=== PATIENT | female | born 1930 | race Caucasian/White ===

== ENCOUNTER 2016-10-01 12:40 | Inpatient (IN) ==
[2016-10-01] MEDS ORDERED: 0.9 % Sodium Chloride 500 ML IVC ONE (12:59)
--- NOTE | 2016-10-01 13:06 | Emergency Department Note ---
Disposition Clinical Impression: Slurred speech CVA (cerebral vascular accident) Qualifiers: CVA mechanism: unspecified Qualified Code(s): I63.9 - Cerebral infarction, unspecified Fall Qualifiers: Encounter type: initial encounter Qualified Code(s): W19.XXXA - Unspecified fall, initial encounter Shoulder pain Qualifiers: Chronicity: unspecified Laterality: left Qualified Code(s): M25.512 - Pain in left shoulder Hypertension Qualifiers: Hypertension type: unspecified Qualified Code(s): I10 - Essential (primary) hypertension Disposition: Admitted As Inpatient Condition: Fair Referrals: Madeline Godoy MD [Primary Care Provider] - Forms: ED Satisfaction Letter Time of Disposition: 14:10 Neuro HPI - General Chief Complaint: ED Neuro Symptoms/Deficit Stated Complaint: facial droop Time Seen by Provider: 10/01/16 12:48 Source: patient Mode of arrival: wheelchair Limitations: no limitations Nursing Notes Reviewed: Yes Vital Signs Reviewed: Yes - History of Present Illness HPI Narrative: 85-year-old female with history of remote brain cancer requiring surgery presents for evaluation for slurred speech. Patient is a poor historian. Patient's last known well was yesterday evening which was confirmed by the [id number] at bedside. Yohmyzyk-wo-xci states the patient had slurred speech last night and was related to the patient being tired. This was around 1730. Acmazzdd-[id number] then found the patient this morning lying on the floor in the hallway. Patient states that she fell getting out of bed and then fell in the hallway. Family states that the patient does ambulate on her own. Patient is unclear the timeframe of the fall. Reports some left shoulder pain but denies any other symptoms. No nausea vomiting. No headache. No abdominal pain. Denies being in any pain other than the left shoulder. Family states the patient does not have a history of strokes. Patient is not on any type of anticoagulation or antiplatelet. Patient's not been taking aspirin. Family confirmed that the patient does not have a history of heart disease, diabetes, high blood pressure. Patient does live at home on her own. - Related Data Home Medications: Home Medications Medication Instructions Recorded Confirmed Cholecalciferol (D-3) [Vitamin D] 1,000 unit PO DAILY 10/01/16 10/01/16 Ferrous Sulfate [Iron] 325 mg PO BID 10/01/16 10/01/16 Multivitamin [Multi-Day Vitamins] 1 tab PO DAILY 10/01/16 10/01/16 Solifenacin Succinate [Vesicare] 10 mg PO DAILY 10/01/16 10/01/16 Allergies/Adverse Reactions: Allergies Allergy/AdvReac Type Severity Reaction Status Date / Time No Known Allergies Allergy Verified 11/25/14 09:33 All systems ED: reviewed and negative except as stated. Constitutional: Reports: as per HPI. Denies: fever Eyes: Reports: as per HPI ENT ED: Reports: as per HPI Cardiovascular: Reports: as per HPI. Denies: chest pain Respiratory: Reports: as per HPI. Denies: dyspnea Gastrointestinal: Reports: as per HPI. Denies: abdominal pain, nausea, vomiting Genitourinary: Reports: as per HPI Musculoskeletal: Reports: as per HPI Integumentary: Reports: as per HPI Neurological: Reports: as per HPI. Denies: headache, weakness, numbness Psychiatric: Reports: as per HPI Endocrine: Reports: as per HPI Hematological/Lymphatic: Reports: as per HPI Allergic/Immunologic: Reports: as per HPI Past Medical History - Past Medical History Medical history: Reports: hyperlipidemia Psychiatric history: Reports: no psych history CARE SPECIALIST history: Reports: bilateral tubal ligation - Social History Smoking Status: Never smoker Smokeless Tobacco Status: No Alcohol use: Reports: none Drug use: Reports: none Physical Exam - General Limitations: age General appearance: alert, in no apparent distress, cachectic - Head Head exam: atraumatic, normocephalic, normal inspection - Eye Eye exam: Present: normal appearance, PERRL (5 mm reactive), EOMI - ENT ENT exam: normal exam - Neck Neck exam: Present: normal inspection. Absent: tenderness - Chest Chest inspection: Present: normal inspection, symmetric chest wall rise - Respiratory Respiratory exam: Present: normal lung sounds bilaterally. Absent: respiratory distress - Cardiovascular Cardiovascular exam: Present: regular rate, normal rhythm, systolic murmur (3 out of 6) - Abdominal Exam Abdominal exam: Present: soft, Non-Tender - Extremities Exam Extremities exam: Present: normal inspection. Absent: pedal edema - Expanded Lower Extremity Exam Hip/Pelvis exam: Present: normal inspection. Absent: tenderness Upper leg exam: Present: normal inspection. Absent: tenderness Knee exam: Present: normal inspection. Absent: tenderness - Back Exam Back exam: Present: normal inspection - Neurological Exam Neurological exam: Present: alert, CN II-XII intact - Expanded Neurological Exam Patient oriented to: Present: person, place. Absent: time Speech: Present: fluid speech Cranial nerves: EOM function (II, III, IV, ): Normal, facial sensation (V): Normal, facial palsy (VII): Abnormal Left (Left facial droop), spinal accessory function (XI): Normal, tongue deviation (XII): Normal Cerebellar function: finger to nose: Abnormal Left Motor strength - LUE: 5/5 Motor strength - RUE: 5/5 Motor strength - LLE: 5/5 Motor strength - RLE: 5/5 Upper motor neuron exam: pronator drift: Absent bilaterally Coma Scale Eye Opening: Spontaneous Coma Scale Motor Response: Obeys Commands Coma Scale Verbal Response: Confused Coma Scale Total: 14 - Skin Skin exam: Present: warm, dry, intact, normal color Course Course Narrative: Patient seen and examined. Patient's last known well was last night. Stroke alert was not activated due to the timing. Patient will get extensive neurologic evaluation. Patient's alert and oriented 2. Patient slightly confused with unclear etiology why she is here. Patient's NIH of 3 given her slurred speech, facial droop, ataxia with finger to nose. Patient will get laboratory evaluation as well as cardiopulmonary with EKG, troponin as well as urinalysis. She will also get a CK. Imaging will include CT of the head and neck. Patient also gets secondary imaging of the left shoulder and chest. Disposition likely admission for further neurologic evaluation. - Reevaluation(s) Reevaluation #1: Patient returned from CT. CT imaging reviewed shows no acute abnormalities. Additional remote lacunar infarcts. Patient's neurologic exam is unchanged. Urinalysis obtained. Patient family updated on plan of care. Patient will be admitted to the hospital service for further evaluation. Time: 14:05 Reevaluation #2: Patient seen and examined. Patient's resting comfortably. Patient was updated on plan of care. Time: 14:51 Vital Signs Temperature 97.8 F 10/01/16 12:42 Pulse Rate 68 10/01/16 12:42 Respiratory Rate 16 10/01/16 12:42 Blood Pressure 133/86 10/01/16 12:42 O2 Sat by Pulse Oximetry 97 10/01/16 12:42 Temperature 97.8 F 10/01/16 12:42 Pulse Rate 96 10/01/16 14:34 Respiratory Rate 18 10/01/16 14:34 Blood Pressure 176/119 10/01/16 14:34 O2 Sat by Pulse Oximetry 98 10/01/16 14:34 Oxygen Delivery Oxygen Delivery Room Air Neuro Symptoms/Deficit - MDM Narrative Medical decision making narrative: 85 YEAR old female presents for evaluation for possible CVA. Patient denies history of strokes in the past. Last known well was last night. Patient is not a thrombolytic candidate and a stroke alert was not called. Patient did have a NIH score of 3 given facial droop, slurred speech and ataxia with finger to nose. Patient does live at home. Family at bedside provided somewhat additional history. Patient reports that she did fall. Denies any pain except pain in her left shoulder. Patient CT imaging of the head and neck obtained which shows no acute abnormalities but does show remote lacunar infarcts which are consistent with hypertension which the patient does exhibit some elevated high blood pressure in the ER. Concerns about any rapidly lowering blood pressure agents given the possibility of ischemic CVA. Patient was given aspirin. Patient CT of the neck showed a possible T3 compression fracture however the patient is not tender on palpation and less likely this is acute finding. Patient's lab work including CBC troponin I through obtained. Urinalysis was also obtained. And will be sent for culture. No antibiotics initiated in the emergency department. Patient will be admitted to hospital service for further neurologic evaluation and monitoring. Family bedside updated on plan of care. Patient would likely benefit from neurological evaluation as well as discharge planning. - Lab Data Lab results reviewed: Yes I reviewed the patient's lab results. Result diagrams: 10/01/16 13:08 10/01/16 13:08 Lab Results 10/01/16 10/01/16 10/01/16 Range/Units 13:08 13:08 13:08 WBC 9.5 (4.3-11.1) K/mcL RBC 4.10 (3.82-4.97) M/mcL Hgb 12.7 (11.5-15.4) g/dL Hct 38.8 (35.3-44.9) % MCV 94.6 (83.0-100.0) fL MCH 31.0 (28.0-33.3) pg MCHC 32.7 (31.6-35.5) g/dL RDW 14.0 (11.5-14.5) % Plt Count 236 (140-400) K/mcL MPV 10.5 (9.4-12.4) fL Immature Gran % 0.3 (0-4) % Seg Neutrophils % 63.0 % Lymphocytes % 21.6 % Monocytes % 12.4 % Eosinophils % 2.0 % Basophils % 0.7 % Neutrophils # 6.0 (1.6-8.9) K/mcL Lymphocytes # 2.1 (0.6-4.6) K/mcL Monocytes # 1.2 (0.0-1.3) K/mcL Eosinophils # 0.2 (0.0-0.6) K/mcL Basophils # 0.1 (0.0-0.2) K/mcL PT 11.6 (9.4-12.1) Seconds INR 1.1 APTT 28.6 (26.0-36.0) Seconds Sodium 142 (136-145) mEq/L Potassium 3.9 (3.5-4.5) mEq/L Chloride 106 (98-109) mEq/L Carbon Dioxide 29 (19-29) mEq/L BUN 24 H (7-20) mg/dL Creatinine 0.92 (0.57-1.11) mg/dL Est GFR ( Amer) > 60 (> 60) Est GFR (Non-Af Amer) 58 L (> 60) BUN/Creatinine Ratio 26 (6-26) Glucose 101 H (70-99) mg/dL Calculated Osmolality 298 (280-300) Calcium 9.7 (8.6-10.8) mg/dL Creatine Kinase (29-168) Units/L Troponin I (0-0.03) ng/mL Urine Color (Yellow) Urine Clarity (Clear) Urine pH (5.0-8.0) pH Units Ur Specific [place] (1.010-1.025) Urine Protein (Neg-Trace) mg/dL Urine Glucose (UA) (Normal) mg/dL Urine Ketones (Negative) mg/dL Urine Blood (Negative) Urine Nitrite (Negative) Urine Bilirubin (Negative) Urine Urobilinogen (Normal) mg/dL Ur Leukocyte Esterase (Negative) Urine Microscopic RBC (0-3) per hpf Urine Microscopic WBC (0-3) per hpf Ur Squamous Epith Cells (None-Few) per lpf Urine Bacteria (None-Few) per hpf Hyaline Casts (None-Few) per lpf 10/01/16 10/01/16 10/01/16 Range/Units 13:08 13:08 14:01 WBC (4.3-11.1) K/mcL RBC (3.82-4.97) M/mcL Hgb (11.5-15.4) g/dL Hct (35.3-44.9) % MCV (83.0-100.0) fL MCH (28.0-33.3) pg MCHC (31.6-35.5) g/dL RDW (11.5-14.5) % Plt Count (140-400) K/mcL MPV (9.4-12.4) fL Immature Gran % (0-4) % Seg Neutrophils % % Lymphocytes % % Monocytes % % Eosinophils % % Basophils % % Neutrophils # (1.6-8.9) K/mcL Lymphocytes # (0.6-4.6) K/mcL Monocytes # (0.0-1.3) K/mcL Eosinophils # (0.0-0.6) K/mcL Basophils # (0.0-0.2) K/mcL PT (9.4-12.1) Seconds INR APTT (26.0-36.0) Seconds Sodium (136-145) mEq/L Potassium (3.5-4.5) mEq/L Chloride (98-109) mEq/L Carbon Dioxide (19-29) mEq/L BUN (7-20) mg/dL Creatinine (0.57-1.11) mg/dL Est GFR ( Amer) (> 60) Est GFR (Non-Af Amer) (> 60) BUN/Creatinine Ratio (6-26) Glucose (70-99) mg/dL Calculated Osmolality (280-300) Calcium (8.6-10.8) mg/dL Creatine Kinase 84 (29-168) Units/L Troponin I 0.00 (0-0.03) ng/mL Urine Color Yellow (Yellow) Urine Clarity Cloudy A (Clear) Urine pH 7.5 (5.0-8.0) pH Units Ur Specific [place] 1.010 (1.010-1.025) Urine Protein Negative (Neg-Trace) mg/dL Urine Glucose (UA) Normal (Normal) mg/dL Urine Ketones Negative (Negative) mg/dL Urine Blood Moderate H (Negative) Urine Nitrite Negative (Negative) Urine Bilirubin Negative (Negative) Urine Urobilinogen Normal (Normal) mg/dL Ur Leukocyte Esterase Moderate H (Negative) Urine Microscopic RBC 15-30 H (0-3) per hpf Urine Microscopic WBC 5-15 H (0-3) per hpf Ur Squamous Epith Cells Many H (None-Few) per lpf Urine Bacteria Moderate H (None-Few) per hpf Hyaline Casts Moderate H (None-Few) per lpf - Radiology Data Radiology results reviewed: Yes I reviewed the patient's radiology results. Chest X-Ray 10/01/16 12:58 IMPRESSION: 1. No active pulmonary disease. D/ / Shahbaz Sanchez MD / Shahbaz Sanchez MD Interpreting Provider: Shahbaz Sanchez MD Head CT 10/01/16 12:59 IMPRESSION: No acute intracranial abnormality. Cerebral atrophy. Chronic small vessel ischemic disease. Remote lacunar infarcts in the basal ganglia and thalami bilaterally. CT is insensitive for the early detection of cerebrovascular accident in the first 24 hours. Previous right frontal parietal craniotomy. D/ / 10/01/2016 13:54:45 Aida Godoy MD / [facility] Interpreting Provider: Aida Godoy MD Cervical Spine CT 10/01/16 13:02 IMPRESSION: 1. Possible mild acute superior endplate compression fracture of T3. 2. No other acute abnormalities are identified. 3. Multilevel degenerative changes. D/ / 10/01/2016 13:59:40 Lukas Palmer MD / jen Interpreting Provider: Lukas Palmer MD Shoulder X-Ray 10/01/16 13:03 IMPRESSION: 1. No acute abnormality. D/ / Abel Whitt MD / Abel Whitt MD Interpreting Provider: Abel Whitt MD - EKG Data EKG attestation: Yes I reviewed and interpreted this EKG. EKG shows normal: sinus rhythm Rate: normal Rhythm: NSR [place]/QRS: normal Interpretation: no acute changes, unchanged when compared to prior tracing (date ) NIH Stroke Scale - Level of Consciousness LOC: Alert - LOC Questions LOC Questions: Answers both correctly - LOC Commands LOC Commands: Performs both correctly - Best Gaze Best Gaze: Normal - Visual Visual: No visual loss - Facial Palsy Facial Palsy: Minor asymmetry on smiling, flattened nasolabial fold - Motor Arms Motor Arm-Left: No drift for 10 seconds Motor Arm-Right: No drift for 10 seconds - Motor Legs Motor Leg-Left: No drift for 5 seconds Motor Leg-Right: No drift for 5 seconds - Limb Ataxia Limb Ataxia: Present in ONE limb - Sensory Sensory: Normal - Best Language Best Language: No aphasia - Dysarthria Dysarthria: Mild, slurs some words - Extinction and Inattention Extinction and Inattention: Normal - NIHSS Total Score NIHSS Total Score: 3 TPA Checklist - LKW: 3-4.5 hrs Add. Warnings/Precautions Patient/family understanding: The patient/family members have been counseled and understood the risk, benefit , and alternatives of treatment. S.B.ARahul - S.B.ARahul Situation: Demographics Background: Presenting Complaint Assessment: Vital Signs, Course and respsone to treatment Recommendation: Barrier(s) to disposition, Recommendation based on pending studies, treatments, or consults S.B.A.Rick Report Given to: Dr. SUKI HawleyBLisandroARahul Repor Time: 14:36 Attestation Statement - Attestation Attestation: I personally interviewed and examined this patient and my medical decision- making was reviewed with the ED Resident Physician, Dr. Pedraza. I agree with the documented findings, disposition and treatment plan as described except to the extent set forth below. Patient is an 85-year-old white female who is brought to the emergency department today by family for slurred speech and facial droop. According to the [id number] is with the patient at bedside, as early as yesterday afternoon when they went to see the patient he noticed that she was having some slurred speech. Idtznhct-mp-gxm reports that she called her later on to check on her at about 7 PM and on the phone still sounded like she had slurred speech was tested but was denying any symptoms and stated she was feeling fine. Patient does live independently but family lives close by and check on her frequently. Today when they stopped to see her they found her on the floor in the hallway of her home. She had left-sided facial droop and worsening slurred speech. Patient was awake alert and oriented and able to answer questions appropriately. She was denying any pain and no dizziness. Patient reports that she got up in the middle of the night, unclear as to what time and fell onto the floor. Patient reports that she crawled into the hallway and new her family would be by to check on her nurse that she just sat on the floor and waited for them. Patient appears awake, is denying any pain or discomfort of any kind no headaches, no chest pain or pressure, no abdominal pain, no neck or back pain, and no extremity pain. Patient denies any injuries from the fall. Patient with obvious left-sided facial droop and slurred speech but no obvious weakness of the extremities. Patient is resting comfortably in no acute distress. Vital signs on arrival are stable. I agree with patient's physical exam findings as documented. Patient's initial EKG showed no acute ST or T-wave changes. Was placed on a monitor as well as continuous pulse ox IV saline well was established labs were drawn and sent portal chest x-ray was obtained and she was taken to CT for a stat CT head. Patient based on time of onset of symptoms does not meet criteria for TPA so stroke network was not notified. Patient has remained clinically stable with no neurologic worsening throughout her ED course. Patient remains asymptomatic. Patient's CT head was unremarkable for any acute hemorrhagic or ischemic changes. Patient does have evidence of old lacunar infarcts, evidence of her remote frontoparietal brain surgery, and some chronic changes. CT neck does not show any cervical injury but did not find an acute compression fracture of T3. Patient on clinical exam has no tenderness to palpation overlying this area. Patient's also had plain film imaging which was unremarkable. Patient's labs including troponin were unremarkable. Patient's urine shows some moderate leuks and small amount of blood but no nitrates. We will administer aspirin and admit the patient for further evaluation of presumed CVA. Patient has had moderate increase in her blood pressure while being monitored continuously. Family denies any history of hypertension. We will continue to monitor closely. Discussed results with patient and daughter and patient will be admitted for further evaluation of neurologic changes.
[2016-10-01 13:23] LABS: Basophils # 0.1 K/mcL (0.0-0.2); Basophils % 0.7 %; Eosinophils # 0.2 K/mcL (0.0-0.6); Hematocrit 38.8 % (35.3-44.9); Hemoglobin 12.7 g/dL (11.5-15.4); Immature Granulocytes % 0.3 % (0-4); Lymphocytes # 2.1 K/mcL (0.6-4.6); Lymphocytes % 21.6 %; Mean Corpuscular HGB Conc 32.7 g/dL (31.6-35.5); Mean Corpuscular Volume 94.6 fL (83.0-100.0); Mean Platelet Volume 10.5 fL (9.4-12.4); Monocytes # 1.2 K/mcL (0.0-1.3); Monocytes % 12.4 %; Platelet Count 236 K/mcL (140-400)
[2016-10-01 13:25] LABS: INR 1.1; Prothrombin Time 11.6 Seconds (9.4-12.1)
[2016-10-01 13:28] LABS: Activated Partial Thrombo Time 28.6 Seconds (26.0-36.0)
[2016-10-01 13:34] LABS: BUN/Creatinine Ratio 26 (6-26); Blood Urea Nitrogen 24 mg/dL (7-20); Calcium 9.7 mg/dL (8.6-10.8); Carbon Dioxide 29 mEq/L (19-29); Chloride 106 mEq/L (98-109); Glucose 101 mg/dL (70-99); Osmolality,Calculated 298 (280-300); Potassium 3.9 mEq/L (3.5-4.5); Sodium 142 mEq/L (136-145); eGFR For African Americans > 60 (> 60); eGFR For Non-African Americans 58 (> 60)
[2016-10-01] MEDS ORDERED: Aspirin 81 MG TAB.CHEW PO ONE (14:04)
[2016-10-01 14:09] LABS: Bilirubin,Urine Negative (Negative); Blood,Urine Moderate (Negative); Clarity,Urine Cloudy (Clear); Color,Urine Yellow (Yellow); Glucose,Urine (UA) Normal (Normal); Ketones,Urine Negative (Negative); Leukocyte Esterase,Urine Moderate (Negative); Nitrite,Urine Negative (Negative); PH,Urine 7.5 pH Units (5.0-8.0); Protein,Urine Negative (Neg-Trace); Urobilinogen,Urine Normal (Normal)
[2016-10-01 14:11] LABS: Bacteria,Urine Moderate per hpf (None-Few); Hyaline Casts,Urine Moderate per lpf (None-Few); RBC,Urine 15-30 per hpf (0-3); Squamous Epithelial Cell,Urine Many per lpf (None-Few)
[2016-10-01] MEDS ORDERED: Naloxone 0.4 MG/ML INJ IVP PRN (16:12)
--- NOTE | 2016-10-01 16:35 | Internal Med History&Physical ---
Date of Encounter: 10/01/16 Time of Encounter: 16:35 Assessment and Plan (1) CVA (cerebral vascular accident) Current visit: Yes Status: Acute 1 patient is experiencing slurred speech as well as left-sided facial droop as well as left-sided weakness. She also experienced a fall. CT of head did reveal remote lacunar infarcts in the basal ganglia and thalami bilaterally. We will obtain MRI 2 obtain cardiac echo 3 obtain carotid Dopplers 4 we will continue patient nothing by mouth due to left-sided facial droop speech evaluation 5 continue with aspirin rectally 6 we will obtain A1c and lipid profile-apparently patient does not tolerate statins 7 consult PT OT 8 fall precautions aspiration precautions 9 consult neurology as needed Qualifiers: CVA mechanism: unspecified Qualified Code(s): I63.9 - Cerebral infarction, unspecified (2) CKD (chronic kidney disease), stage II Current visit: No Status: Chronic 1 patient has a history of PKD stage III presently creatinine is stable at 0.9- 3 we will continue to monitor creatinine 2 avoid nephrotoxins 3 monitor intake and output daily weights (3) Hyperlipidemia Current visit: No Status: Chronic 1 patient has a history of hyperlipidemia and she is probably not on a statin due to she is unable to tolerate. We will obtain lipid profile-reevaluate possible statin use Qualifiers: Hyperlipidemia type: unspecified Qualified Code(s): E78.5 - Hyperlipidemia , unspecified (4) Fall Current visit: Yes Status: Acute 1 fall precautions 2 PT OT consult 3 social service consult for discharge planning 4 we will obtain ck-due to unknown how long patient was found down Qualifiers: Encounter type: initial encounter Qualified Code(s): W19.XXXA - Unspecified fall, initial encounter (5) Hypertension Current visit: Yes Status: Acute Qualifiers: Hypertension type: unspecified Qualified Code(s): I10 - Essential (primary ) hypertension (6) DVT prophylaxis Current visit: Yes Status: Acute 1 SCD Internal Medicine - H&P: HPI Chief complaint: fall Admitted From: Emergency Dept Plans for Post Hospital Care: Home History of present illness: Ms. Mendoza is a 85 year old female past medical history of chronic anemia chronic urinary tract infections CK D stage II macular degeneration hypertension hyperlipidemia, past history of brain cancer. Patient presented to the ER today with new onset of slurred speech and weakness and left facial droop. Last known well was yesterday evening around 5:30. The patient does live alone. Oaageolb-wo-iks who is at bedside, stated that the patient did have some slight slurred speech last night as well as complaining of feeling tired. Around 9 or 10 AM this morning the xybvkaqv-nq-dyw found the patient on the floor in the hallway. Patient states that she was attempting to get ready for bed and she became weak and fell forward onto the bed and then slid to the floor she was unable to get up on her and she states that her left arm felt weak and was unable to lift herself up. She drove herself to the hallway and called for help and was there until daughter in law found her this a.m. patient denies any dizziness lightheadedness palpitations or loss of consciousness prior or during fall. Patient is unsure of timeframe of fall sometime in the evening and cflrdfst-kw-chw reports she was still on her clothes from the day before. She denies any nausea vomiting diarrhea abdominal pain chest pain shortness of breath fevers or chills. The patient lives independently and is able to perform her ADLs She does have some difficulty ambulating due to frequent calluses on her feet, however she has not had any falls. She does not have a past history of strokes however she did have a brain tumor in 1973 which was removed. According to ER records lab work was obtained which was unremarkable UA did show blood bacteria as well leuk esttrase. Patient denies any urinary symptoms. CT of head Remote lacunar infarcts in the basal ganglia and thalami bilaterally. She was given an aspirin and has been admitted for further workup and evaluation. Presently the patient is alert and appropriate she does follow simple commands she has a left-sided facial droop as well as slurred speech. She has weakness to her upper and lower extremities lungs sounds are clear heart sounds are regular S1-S2 with soft systolic murmur. Abdomen soft nontender no pedal edema noted. Presently patient is hemodynamically stable. I reviewed his case with who agrees with plan. Past Med Surg Social Fam HX - Past Medical History Medical history: hyperlipidemia Psychiatric history: no psych history - Social History Smoking Status: Never smoker Smokeless Tobacco Status: No Alcohol use: none Drug use: none - Family History Father Living Status: Hx Family Cancer: Yes (Prostate cancer) Mother Living Status: Cause of : Heart disease Internal Medicine - H&P: Meds Cholecalciferol (D-3) [Vitamin D] 1,000 unit PO DAILY 10/01/16 [History] Ferrous Sulfate [Iron] 325 mg PO BID 10/01/16 [History] Multivitamin [Multi-Day Vitamins] 1 tab PO DAILY 10/01/16 [History] Solifenacin Succinate [Vesicare] 10 mg PO DAILY 10/01/16 [History] Allergies No Known Allergies Allergy (Verified 11/25/14 09:33) All Systems PM: A 10-system review of systems was performed and is negative for pertinent findings except as documented above in the HPI. - Constitutional Constitutional: fatigue, weakness, no chills, no fever(s), no night sweats - EENT Eyes: no change in vision, no discharge, no pain, no photophobia Ears: decreased hearing, no ear discharge, no ear pain, no tinnitus Nose, mouth and throat: dry mouth, no dysphagia, no nasal discharge, no neck pain, no sore throat - Cardiovascular Cardiovascular ROS IM: no chest pain, no diaphoresis, no dyspnea, no lightheadedness, no palpitations, no syncope - Respiratory Respiratory: no cough, no dyspnea, no wheezing, no excessive phlegm production - Gastrointestinal Gastrointestinal: no abdominal pain, no diarrhea, no hematemesis, no hematochezia, no melena, no nausea, no vomiting - Genitourinary Genitourinary: no change in urinary stream, no dysuria, no flank pain, no hematuria - Musculoskeletal Musculoskeletal ROS IM: no numbness, no tingling - Integumentary Integumentary IM: no rash, no unusual bruising - Neurological Neurological ROS: abnormal speech, confusion, weakness, no convulsions, no focal weakness, no numbness, no tingling, no tremor(s) - Hematologic/Lymphatic Hematologic/Lymphatic: no easy bruising - Constitutional Vitals: Temp Pulse Resp BP Pulse Ox 97.8 F 96 18 176/119 98 10/01/16 12:42 10/01/16 14:34 10/01/16 14:34 10/01/16 14:34 10/01/16 14:34 General appearance: Present: A&O X 3, answers questions appropriately - Head Head exam: Present: atraumatic, normocephalic - Eye Eye exam: Present: PERRL, conjuntiva pink, sclera anicteric Pupils: Present: PERRL - Neck Neck exam general surgery: Present: supple, trachea midline. Absent: lymphadenopathy - Respiratory Respiratory exam: Present: CTAB. Absent: accessory muscle use, rales, rhonchi, wheezes - Cardiovascular Cardiovascular exam: Present: RRR, +S1, +S2, systolic murmur. Absent: diastolic murmur, gallop, rubs - GI/Abdominal GI/Abdominal exam: Present: normal bowel sounds, soft, no peritoneal signs. Absent: distended, tenderness - Extremities Exam Extremities exam: Present: warm, radial pulses palpable and symetrical. Absent : calf tenderness, cyanotic, pedal edema - Neurological Exam Neurological exam: Present: CN II-XII intact, oriented X3, no focal deficits, facial droop, speech deficit. Absent: pronater drift - Expanded Neurological Exam Cerebellar function: finger to nose: Normal Neuro motor strength exam: LUE: 3, RUE: 5, LLE: 2/1, RLE: 3 Coma Scale Eye Opening: Spontaneous Coma Scale Motor Response: Obeys Commands Coma Scale Verbal Response: Oriented Coma Scale Total: 15 - Skin Skin exam: Present: dry, intact Internal Med - H&P Results - Labs CBC & Chem 7: 10/01/16 13:08 10/01/16 13:08 - EKG Data EKG shows normal: sinus rhythm - Diagnostic Studies CT scan - head Additional comments: Chest X-Ray 10/01/16 12:58 IMPRESSION: 1. No active pulmonary disease. D/ / Shahbaz Sanchez MD / Shahbaz Sanchez MD Interpreting Provider: Shahbaz Sanchez MD Head CT 10/01/16 12:59 IMPRESSION: No acute intracranial abnormality. Cerebral atrophy. Chronic small vessel ischemic disease. Remote lacunar infarcts in the basal ganglia and thalami bilaterally. CT is insensitive for the early detection of cerebrovascular accident in the first 24 hours. Previous right frontal parietal craniotomy. D/ / 10/01/2016 13:54:45 Aida Godoy MD / earnold Interpreting Provider: Aida Godoy MD Cervical Spine CT 10/01/16 13:02 IMPRESSION: 1. Possible mild acute superior endplate compression fracture of T3. 2. No other acute abnormalities are identified. 3. Multilevel degenerative changes. D/ / 10/01/2016 13:59:40 Lukas Palmer MD / jen Interpreting Provider: Lukas Palmer MD Shoulder X-Ray 10/01/16 13:03 IMPRESSION: 1. No acute abnormality. D/ / Abel Whitt MD / Abel Whitt MD Interpreting Provider: Abel Whitt MD
[2016-10-01] MEDS ORDERED: Saliva Stimulant 100ml BOTTLE PO PRN (16:36)
[2016-10-02 00:51] LABS: Basophils # 0.1 K/mcL (0.0-0.2); Basophils % 0.6 %; Eosinophils # 0.4 K/mcL (0.0-0.6); Eosinophils % 4.5 %; Hematocrit 36.6 % (35.3-44.9); Hemoglobin 11.5 g/dL (11.5-15.4); Immature Granulocytes % 0.1 % (0-4); Immature Platelets 5.4 % (1.1-6.1); Mean Corpuscular HGB Conc 31.4 g/dL (31.6-35.5); Mean Corpuscular Hemoglobin 30.4 pg (28.0-33.3); Mean Corpuscular Volume 96.8 fL (83.0-100.0); Mean Platelet Volume 10.5 fL (9.4-12.4); Monocytes # 0.9 K/mcL (0.0-1.3); Monocytes % 11.2 %; Neutrophils # 4.6 K/mcL (1.6-8.9); Platelet Count 223 K/mcL (140-400); Red Blood Count 3.78 M/mcL (3.82-4.97); Red Cell Distribution Width 14.1 % (11.5-14.5); Segmented Neutrophils % 58.6 %
[2016-10-02 01:06] LABS: BUN/Creatinine Ratio 24 (6-26); Blood Urea Nitrogen 20 mg/dL (7-20); Calcium 8.8 mg/dL (8.6-10.8); Carbon Dioxide 27 mEq/L (19-29); Chloride 107 mEq/L (98-109); Chol/HDL Ratio 6.7 (0-4.9); Cholesterol 213 mg/dL (< 200); Glucose 77 mg/dL (70-99); HDL Cholesterol 32 mg/dL (40-59); LDL Cholesterol,Calculated 159 mg/dL (0-99); Magnesium 2.1 mg/dL (1.6-2.6); Osmolality,Calculated 291 (280-300); Potassium 3.9 mEq/L (3.5-4.5); Sodium 140 mEq/L (136-145); Triglycerides 108 mg/dL (< 150); eGFR For African Americans > 60 (> 60); eGFR For Non-African Americans > 60 (> 60)
[2016-10-02 01:43] LABS: Hemoglobin A1C 5.6 %
[2016-10-02] MEDS ORDERED: Ondansetron 4 MG/2 ML VIAL ONE (05:20)
[2016-10-02] MEDS: Ondansetron 4 MG/2 ML VIAL IVP PRN ×2 (06:39→20:42)
--- NOTE | 2016-10-02 07:00 | Carotid Imaging Report ---
Carotid Duplex Patient Name:Teresa Mendoza Order Number:[id number] Procedure Date:10/01/2016 Date:1930Age:85 yrs Gender:Female Rt.BP:188 / 83 mmHgHeart Rate: Location:[facility] Room #: 2NE24 [employer] Driver:Ashley Bustos RDCS Referring MD:Radha Watt CNP semiconductor processing group leader:Madeline Godoy MD Reading MD:Wilman Escobar MD Primary Indications:Left Side Weakness Risk Factors Yes/No Hypercholesterolemia Yes Impressions: The right carotid artery is normal throughout. The left carotid artery has minimal plaque throughout. Findings Carotid Duplex: Right: There is antegrade spectral Doppler flow patterns in the right vertebral artery. Left: There is nonstenotic plaque in the left bifurcation. There is smooth plaque. There is antegrade spectral Doppler flow patterns in the left vertebral artery. Prior Study: No prior study available for comparison. Carotid Results Right PSV EDV Assessment Proximal CCA 49 10 Mid CCA 45 11 Distal CCA 42 12 Bifurcation 32 7 Proximal ICA 44 11 Mid ICA 53 14 Distal ICA 58 15 ECA 60 5 Vertebral Artery 73 15 Antegrade Flow Left PSV EDV Assessment Proximal CCA 64 11 Mid CCA 52 11 Distal CCA 53 12 Bifurcation 39 11 Non Stenotic Plaque Proximal ICA 40 9 Mid ICA 62 17 Distal ICA 80 21 ECA 62 3 Vertebral Artery 48 11 Antegrade Flow Ratio's Right ICA/CCA Ratio: 1.28 ICA/CCA Values: 58/45 Left ICA/CCA Ratio: 1.29 ICA/CCA Values: 80/62 Updated by Wilman Escobar MD on 10/02/2016 6:52:50 AM electronically signed on 10/02/2016 6:53:18 AM with status of Final
--- NOTE | 2016-10-02 09:07 | Event Note ---
Date of Encounter: 10/02/16 Time of Encounter: 08:10 I was called to assess this patient as she had an acute change in her mental status and new neurological deficits including being unresponsive and worsening weakness on the left side. Patient is an 85-year-old who was admitted yesterday due to acute CVA causing left-sided weakness and left facial droop. MRI revealed right mid coronary radiator [place] infarct. On assessing the patient, the patient was not able to answer any questions. She responds only to painful stimuli. NIH stroke scale is 16 with the patient being able to hold the right arm until the count of 10. Left arm felt to the bed before the count of 10. Both legs felt to the bed immediately. Temperature 96.2 degrees Fahrenheit pulse rate 100/m respiratory rate 16/m and blood pressure 183/98 mmHg. Stroke alert initiated. CT scan of the head performed stat-personally reviewed. No acute hemorrhagic conversion or edema noted. CT angiogram of the head and neck performed-reviewed with radiologist Dr. Reyes. Tight occlusion versus high-grade stenosis noted in the left proximal middle cerebral artery in the M2 segment. Case discussed with [facility] neurologist on-call Dr. Beard. He states that the patient is not a candidate for TPA or intervascular intervention given her symptoms and new onset left-sided stroke. 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 I have called the number for the next of kin and was able to talk to the vqcesyfk-yk-dsy Rosa and updated her about the latest developments. Rosa said that the patient's son Toan is a next of kin. She would call her son and convey their decision to me. I have provided them with my personal phone number. Once I hear back from Toan or Rosa, I will transfer the patient to [facility] for higher level of care. Total critical care time of 60min
--- NOTE | 2016-10-02 09:40 | Electrocardiograph Report ---
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
--- NOTE | 2016-10-02 12:31 | Neurology - Consult Note ---
Date of Encounter: 10/02/16 Time of Encounter: 12:25 Assessment and Plan (1) CVA (cerebral vascular accident) Current Visit: Yes Status: Acute This appears to be a small vessel lacunar infarct, secondary to small vessel etiology. She does have buttermaker HTN and hyperlipidemia. No prior history of atrial fibrillation. Continue telemetry. Patient developed an episode of acute change in mental status this am with full recovery, with only residual neurological deficits consistent with proven right kahn radiata lacuanr infarct. The presence of left M2 occlusion is of unknown clinical significant and it may be chronic in nature with establishment of collateral blood flow via [place] of [place]. Will continue stroke work up. Agree with repeat MRI of brain, EEG and carotid artery duplex as recommended by [facility] neuologist. Meanwhile, Continue aspirin 325mg daily and continue statin therapy. will watch neurologically closely, PT swallow evaluation and PT, continue medical and supportive care. Qualifiers: CVA mechanism: unspecified Qualified Code(s): I63.9 - Cerebral infarction, unspecified History of Present Illness Chief complaint: left sided weakness HPI: Ms. Mendoza is a 85 year old female with PMH significant for HTN, GERD, HLD, CKD, macular deeneration who developed acute onset of left sided weakness yesterday and seen her PCP who suspected stroke. Indeed, MRI of brain yesterday showed acute infarct involving the right kahn radiata, likely secondary to small vessel lacunar infarct. does have history of HTN but no history of atrial fibrillation This AM, had an episode of acute mental status changes, unresponsive and not able to move all extremities. No obvious motor or seizure activity. Evaluated by [facility] telemedicine who recommended CTA of neck and brain, which showed left M2 occlusion. Subsequently patient regained her consciousness. Has left facial droop and tongue devaiation now. Able to move left arm and leg. Has dysarthria. but language content appears intact. Wide awake and responsive Past Med Surg Social Fam HX - Past Medical History Medical history: hyperlipidemia Psychiatric history: no psych history - Social History Smoking Status: Never smoker Smokeless Tobacco Status: No Alcohol use: none Drug use: none - Family History Father Living Status: Hx Family Cancer: Yes (Prostate cancer) Mother Living Status: Cause of : Heart disease Medications and Allergies Cholecalciferol (D-3) [Vitamin D] 1,000 unit PO DAILY 10/01/16 [History] Ferrous Sulfate [Iron] 325 mg PO BID 10/01/16 [History] Multivitamin [Multi-Day Vitamins] 1 tab PO DAILY 10/01/16 [History] Solifenacin Succinate [Vesicare] 10 mg PO DAILY 10/01/16 [History] Allergies No Known Allergies Allergy (Verified 11/25/14 09:33) All Systems: A 10-system review of systems was performed and is negative for pertinent findings except as documented above in the HPI. Physical Examination - Vital Signs Vital Signs: Initial Vital Signs Temp Pulse Resp BP Pulse Ox 97.8 F 68 16 133/86 97 10/01/16 12:42 10/01/16 12:42 10/01/16 12:42 10/01/16 12:42 10/01/16 12:42 - Constitutional General appearance: comfortable - Neurologic Sensorimotor examination: other (Grossly intact) Detailed motor examination: grossly full strength in all extremities (Hand manager metal mildly weak to the left arm. Able to lift left leg off the bed and keep it there more than few seconds.) Motor examination - right side: 5/5: deltoids, biceps, triceps, wrist flexion, wrist extension, blade aligner, hip flexors, tibialis Anterior, quadriceps, toe extension (EHL), plantarflexion Motor examination - left side: 4/5: deltoids, biceps, triceps, wrist flexion, wrist extension, hip flexors, blade aligner, quadriceps, tibialis Anterior, toe extension (EHL), plantarflexion Detailed sensory examination: other (Grossly intact) Posture: other (None) Reflexes: Biceps: 1+, Triceps: 1+, Brachioradialis: 1+, Patella: 1+, Achilles: 1 + Mental Status Examination: awake, alert, oriented to person, oriented to place, oriented to time, follows commands appropriately, answers questions appropriately, follows simple commands, localizes noxious stimulation, answers questions by nodding yes or no Cranial nerve examination: PERRL, EOMI, visual [place] intact, corneal reflexes brisk symmetrically, sensory to face intact, mastication intact, no facial asymmetry is present (left facial drooping noted. ), tongue protrudes midline ( Tongue protrudes to left side) Results - Laboratory Findings CBC and BMP: 10/02/16 00:24 10/02/16 00:24 Abnormal lab findings: Abnormal lab results RBC 3.78 M/mcL (3.82-4.97) L 10/02/16 00:24 MCHC 31.4 g/dL (31.6-35.5) L 10/02/16 00:24 Cholesterol 213 mg/dL (< 200) H 10/02/16 00:24 LDL Cholesterol, Calc 159 mg/dL (0-99) H 10/02/16 00:24 HDL Cholesterol 32 mg/dL (40-59) L 10/02/16 00:24 Cholesterol/HDL Ratio 6.7 (0-4.9) H 10/02/16 00:24 Urine Clarity Cloudy (Clear) A 10/01/16 14:01 Urine Blood Moderate (Negative) H 10/01/16 14:01 Ur Leukocyte Esterase Moderate (Negative) H 10/01/16 14:01 Urine Microscopic RBC 15-30 per hpf (0-3) H 10/01/16 14:01 Urine Microscopic WBC 5-15 per hpf (0-3) H 10/01/16 14:01 Ur Squamous Epith Cells Many per lpf (None-Few) H 10/01/16 14:01 Urine Bacteria Moderate per hpf (None-Few) H 10/01/16 14:01 Hyaline Casts Moderate per lpf (None-Few) H 10/01/16 14:01 Consult Discharge Plan - Plan Referrals: Madeline Godoy MD [Primary Care Provider] -
[2016-10-02] MEDS: Aspirin Enteric Coated 325 MG Tablet PO SCH (16:59)
[2016-10-02] MEDS: *HR* Heparin 5,000 UNIT/ML VIAL SQ SCH ×2 (19:23→21:43)
--- NOTE | 2016-10-02 19:40 | EEG/EMG/Oth Biometrics Report ---
EEG Procedure Report Date of procedure: 10/02/16 EEG Procedure: Routine EEG Procedure Note: Report: This EEG was acquired with standard international 10-20 electrode placement system with EKG recording. The background activity during this EEG was characterized by the presence of posterior dominant alpha rhythm with best frequency up to 9 Hz. The background activity was reactive to eye openings. Sleep stages were characterized by the presence of background fragmentation, Vertex waves, K-complexes and sleep spindles. There are no electrographic seizures identified during this tracing. There are no epileptiform discharges noted. However, there was rather persistent theta and delta slowing at the right dtep-wozsay-ytasatbu region. Photic stimulation produced no additional abnormalities. HV not performed during this study. EKG tracing showed no significant cardiac dysarrhythmia. Impression: This is an abnormal EEG due to presence of persistent focal slowing at the right zduq-lefhqs-ckodjeif region. Clinical Correlation: This EEG is consistent with mild focal neuronal dysfunction at the right para- centro-parietal region. This pattern can be seen in patients with focal cerebral structure abnormalities, or less likely, as an inter-ictal phenomenon of partial seizure disorder. Clinical correlation advised. Correlation with imaging studies may be helpful.
[2016-10-03] MEDS: *HR* Heparin 5,000 UNIT/ML VIAL SQ SCH ×3 (05:35→21:08)
[2016-10-03] MEDS: Aspirin Enteric Coated 325 MG Tablet PO SCH (09:28)
--- NOTE | 2016-10-03 12:39 | Neurology Progress Note ---
Date of Encounter: 10/03/16 Time of Encounter: 12:38 Assessment and Plan (1) CVA (cerebral vascular accident) Current Visit: Yes Status: Acute 1. Lacunar infarct secondary to small vessel etiology. Continue Aspirin 325mg daily. Statin therapy for hyperlipidemia. PT/OT. 2. One episode of altered mental status of unclear etiology. EEG showed focal slowing likely related to new stroke to the right side but less likely could be seen in patient with a recent partial seizure. This is the first such spell therefore will recommend no termination clerk antiepileptic therapy at present time. Please can be followed up in Neurology clinic in 2-3 weeks after discharge. Will sign off today please call if any questions Qualifiers: CVA mechanism: unspecified Qualified Code(s): I63.9 - Cerebral infarction, unspecified Subjective Principal diagnosis: CVA Interval history: Patent seen and examined. She has no further spells of mental status changes, still has rather significant dysarthria. But language content appears intact. Left sided paresis improved. 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 Able to lift left leg off the bed and keep it there more than few seconds.) Motor examination - left side: 4/5: deltoids, biceps, triceps, wrist flexion, wrist extension, hip flexors, roulette dealer, quadriceps, tibialis Anterior, toe extension (EHL), plantarflexion Sensation intact: Present: other (Grossly intact) Posture: Present: other (None) Mental Status Examination: Present: awake, alert, oriented to person, oriented to place, oriented to time, follows commands appropriately, answers questions appropriately, follows simple commands, localizes noxious stimulation, answers questions by nodding yes or no Cranial nerve examination: Present: PERRL, EOMI, visual [place] intact, corneal reflexes brisk symmetrically, sensory to face intact, mastication intact, no facial asymmetry is present (left facial drooping noted. ), tongue protrudes midline (Tongue protrudes to left side) Results - Laboratory Findings CBC and BMP: 10/02/16 00:24 10/02/16 00:24 Abnormal lab findings: Abnormal lab results RBC 3.78 M/mcL (3.82-4.97) L 10/02/16 00:24 MCHC 31.4 g/dL (31.6-35.5) L 10/02/16 00:24 POC Glucose 95 (58-89) H 10/01/16 12:52 Cholesterol 213 mg/dL (< 200) H 10/02/16 00:24 LDL Cholesterol, Calc 159 mg/dL (0-99) H 10/02/16 00:24 HDL Cholesterol 32 mg/dL (40-59) L 10/02/16 00:24 Cholesterol/HDL Ratio 6.7 (0-4.9) H 10/02/16 00:24 Urine Clarity Cloudy (Clear) A 10/01/16 14:01 Urine Blood Moderate (Negative) H 10/01/16 14:01 Ur Leukocyte Esterase Moderate (Negative) H 10/01/16 14:01 Urine Microscopic RBC 15-30 per hpf (0-3) H 10/01/16 14:01 Urine Microscopic WBC 5-15 per hpf (0-3) H 10/01/16 14:01 Ur Squamous Epith Cells Many per lpf (None-Few) H 10/01/16 14:01 Urine Bacteria Moderate per hpf (None-Few) H 10/01/16 14:01 Hyaline Casts Moderate per lpf (None-Few) H 10/01/16 14:01 - Diagnostic Findings Additional findings: EEG showed slowing at the right para centro-parietal region that can be the result of structural lesion or less likely as an interictal expression of partial seizure. Echocardiography showed normal LVEF of 60%, no significant valvular dysfunction , no PFO Consult Discharge Plan - Plan Referrals: Madeline Godoy MD [Primary Care Provider] -
--- NOTE | 2016-10-03 15:52 | Internal Med Progress Note ---
Date of Encounter: 10/03/16 Time of Encounter: 10:45 - Assessment and plan (1) CVA (cerebral vascular accident) Current Visit: Yes Status: Acute Assessment and plan: Patient's initial MRI revealed an acute stroke in the right mid coronary radiata. Case discussed with neurology. MRI personally reviewed and reviewed with neurology. Latest MRI also reveals an acute infarction in the right basal ganglia. Patient is currently on aspirin and statin. We will continue the same. Patient evaluated by physical therapy and occupational therapy. She would require rehabilitation placement. Echocardiogram reveals preserved ejection fraction with mild left ventricle diastolic dysfunction. Moderately dilated left atrium was seen. Mild to moderate diuretic stenosis present. Moderately calcified aortic valves. Patient is high risk due to risk of falls and the need for placement in a rehabilitation facility for strengthening. She is also at risk of recurrent stroke. Qualifiers: CVA mechanism: embolism Precerebral and cerebral artery: middle cerebral artery Laterality of affected vessel: right Qualified Code(s): I63.411 - Cerebral infarction due to embolism of right middle cerebral artery (2) Hypertension Current Visit: Yes Status: Chronic Assessment and plan: Blood pressure is borderline high. We will continue to allow permissive hypertension due to her acute CVA. Qualifiers: Hypertension type: essential hypertension Qualified Code(s): I10 - Essential (primary) hypertension (3) Moderate protein-calorie malnutrition Current Visit: Yes Status: Chronic Assessment and plan: Patient's BMI is 17.9 and she has had about 15% weight loss and she has decreased by mouth intake. Nutrition has been consulted. Nutritional supplements. (4) Other encephalopathy Current Visit: No Status: Resolved Assessment and plan: Patient had an episode of acute encephalopathy yesterday. This was likely due to a complication of her acute stroke. Case discussed with neurology. EEG shows abnormal slowing of activity over the right side but does not reveal epileptic foci. Even if this was a seizure, this would be the patient's first episode according to neurology and hence, would not require any antiepileptic drug therapy. This is currently resolved and the patient is back to her baseline. She has residual neurological deficits from her right sided stroke. - Subjective Interval history: Patient states that she is feeling well. She has been consuming modified diet without any problems. She has been participating with physical therapy. She denies any chest pain, palpitations or feeling lightheaded. She denies any vertigo. - Constitutional Vitals: Temp Pulse Resp BP Pulse Ox 98.2 F 92 16 167/98 97 10/03/16 12:02 10/03/16 12:02 10/03/16 12:02 10/03/16 12:02 10/03/16 12:02 General appearance: Present: A&O X 3, answers questions appropriately Exam: Gen.: Lying in bed. No acute distress. Facial deviation to the right. Chest: Clear to auscultation bilaterally. No adventitious sounds present. CVS: First and second heart sounds present. No murmurs, rubs or gallops. Abdomen: Soft, nontender, nondistended. Bowel sounds present. Internal Medicine: Result - Labs CBC & Chem 7: 10/02/16 00:24 10/02/16 00:24 - ABG Interpretation ABG results: PT/INR, D-dimer PT 11.6 Seconds (9.4-12.1) 10/01/16 13:08 - Impressions Impressions Brain MRI 10/02/16 10:59 IMPRESSION: 1. Acute 1.8 x 0.9 cm infarct within the superior margin the right basal ganglia extending to the right periventricular white matter. 2. No acute intracranial hemorrhage. 3. Diffuse cerebral volume loss and chronic small vessel ischemic changes. The findings were sent to the Radiology Results Communication [facility] at 3:09 pm on 10/02/2016to be communicated to a licensed caregiver. D/ / 10/02/2016 15:17:17 Rey Shah MD / Eufemia Lobo Interpreting Provider: Rey Shah MD Case discussed with neurology Consult Discharge Plan - Plan Referrals: Madeline Godoy MD [Primary Care Provider] -
[2016-10-04] MEDS: *HR* Heparin 5,000 UNIT/ML VIAL SQ SCH ×3 (06:07→20:08)
[2016-10-04] MEDS: Aspirin Enteric Coated 325 MG Tablet PO SCH (08:58)
--- NOTE | 2016-10-04 09:55 | Internal Med Progress Note ---
Date of Encounter: 10/04/16 Time of Encounter: 08:30 - Assessment and plan (1) CVA (cerebral vascular accident) Current Visit: Yes Status: Acute Assessment and plan: Patient is currently on aspirin and statin. We will continue the same. Patient evaluated by physical therapy and occupational therapy. She would require rehabilitation placement. Patient is currently awaiting placement to rehabilitation. Neurology has signed off. Patient to follow-up in neurology in 2-3 weeks after discharge. Patient is moderate risk due to risk of falls and the need for placement in a rehabilitation facility for strengthening. Qualifiers: CVA mechanism: embolism Precerebral and cerebral artery: middle cerebral artery Laterality of affected vessel: right Qualified Code(s): I63.411 - Cerebral infarction due to embolism of right middle cerebral artery (2) Hypertension Current Visit: Yes Status: Chronic Assessment and plan: Blood pressure is better controlled today. Continue to monitor. Qualifiers: Hypertension type: essential hypertension Qualified Code(s): I10 - Essential (primary) hypertension (3) Moderate protein-calorie malnutrition Current Visit: Yes Status: Chronic Assessment and plan: Nutrition consult and nutritional supplements. (4) Other encephalopathy Current Visit: No Status: Resolved - Subjective Interval history: Patient states that her strength is getting better. She is also able to consume diet without any problems. She is accompanied by her son at the bedside. She denies any nausea or vomiting. She denies feeling dizzy or lightheaded. She has been padded spitting with physical therapy. Currently, she is awaiting placement to rehabilitation facility and insurance approval. - Constitutional Vitals: Temp Pulse Resp BP Pulse Ox 98.3 F 84 15 143/79 97 10/04/16 07:00 10/04/16 07:00 10/04/16 07:00 10/04/16 07:00 10/04/16 07:00 General appearance: Present: A&O X 3, answers questions appropriately Exam: Gen.: Sitting in a chair. No acute distress. Chest: Clear to auscultation bilaterally. No adventitious sounds present. CVS: First and second heart sounds present. No murmurs, rubs or gallops. Abdomen: Soft, nontender, nondistended. Bowel sounds present. No hepatosplenomegaly. Internal Medicine: Result - Labs CBC & Chem 7: 10/02/16 00:24 10/02/16 00:24 - ABG Interpretation ABG results: PT/INR, D-dimer PT 11.6 Seconds (9.4-12.1) 10/01/16 13:08 Consult Discharge Plan - Plan Referrals: Madeline Godoy MD [Primary Care Provider] -
[2016-10-05] MEDS: *HR* Heparin 5,000 UNIT/ML VIAL SQ SCH ×3 (05:10→20:56)
[2016-10-05] MEDS: Aspirin Enteric Coated 325 MG Tablet PO SCH (08:40)
--- NOTE | 2016-10-05 10:30 | Internal Med Progress Note ---
Date of Encounter: 10/05/16 Time of Encounter: 08:30 - Assessment and plan (1) CVA (cerebral vascular accident) Current Visit: Yes Status: Acute Assessment and plan: Continue aspirin and statin. She would require rehabilitation placement. Awaiting bed and insurance approval likely tomorrow. Neurology has signed off. Patient to follow-up in neurology in 2-3 weeks after discharge. Patient is moderate risk due to risk of falls and the need for placement in a rehabilitation facility for strengthening. Qualifiers: CVA mechanism: embolism Precerebral and cerebral artery: middle cerebral artery Laterality of affected vessel: right Qualified Code(s): I63.411 - Cerebral infarction due to embolism of right middle cerebral artery (2) Hypertension Current Visit: Yes Status: Chronic Assessment and plan: Blood pressure is better controlled today. Continue to monitor. Qualifiers: Hypertension type: essential hypertension Qualified Code(s): I10 - Essential (primary) hypertension (3) Moderate protein-calorie malnutrition Current Visit: Yes Status: Chronic Assessment and plan: Nutrition consult and nutritional supplements. Patient also has some tachycardia and dry mucous membranes. We will provide intravenous fluid hydration. - Subjective Interval history: Patient states she feels well however, she reports lightheadedness that is aggravated with sitting and with activity. She also reports palpitations. She denies having any chest pain, shortness of breath, cough or wheezing. She reports good by mouth intake. - Constitutional Vitals: Temp Pulse Resp BP Pulse Ox 98.1 F 82 17 156/87 97 10/05/16 07:00 10/05/16 07:00 10/05/16 07:00 10/05/16 07:00 10/05/16 07:00 General appearance: Present: A&O X 3, answers questions appropriately Exam: Gen.: Lying in bed. No acute distress. Chest: Clear to auscultation bilaterally. No adventitious sounds present. CVS: First and second heart sounds present. No murmurs, rubs or gallops. Tachycardia present. Abdomen: Soft, nontender, nondistended. Bowel sounds present. No hepatosplenomegaly. Internal Medicine: Result - Labs CBC & Chem 7: 10/02/16 00:24 10/02/16 00:24 - ABG Interpretation ABG results: PT/INR, D-dimer PT 11.6 Seconds (9.4-12.1) 10/01/16 13:08 Consult Discharge Plan - Plan Referrals: Madeline Godoy MD [Primary Care Provider] -
[2016-10-05] MEDS: 0.9 % Sodium Chloride 1,000 ML IVC SCH (16:57)
[2016-10-06] MEDS: *HR* Heparin 5,000 UNIT/ML VIAL SQ SCH ×3 (05:52→22:42)
[2016-10-06] MEDS: 0.9 % Sodium Chloride 1,000 ML IVC SCH ×3 (10:07→22:41)
[2016-10-06] MEDS: Aspirin Enteric Coated 325 MG Tablet PO SCH (10:07)
--- NOTE | 2016-10-06 11:48 | Internal Med Progress Note ---
Date of Encounter: 10/06/16 Time of Encounter: 10:15 - Assessment and plan (1) CVA (cerebral vascular accident) Current Visit: Yes Status: Acute Assessment and plan: Continue aspirin and statin. She would require rehabilitation placement. Awaiting bed and insurance approval likely tomorrow. Neurology has signed off. Patient to follow-up in neurology in 2-3 weeks after discharge. Patient has mild tachycardia now. Likely due to dehydration due to poor by mouth intake. Patient will be given intravenous fluids. Patient is moderate risk due to risk of falls and the need for placement in a rehabilitation facility for strengthening. Qualifiers: CVA mechanism: embolism Precerebral and cerebral artery: middle cerebral artery Laterality of affected vessel: right Qualified Code(s): I63.411 - Cerebral infarction due to embolism of right middle cerebral artery (2) Hypertension Current Visit: Yes Status: Chronic Assessment and plan: Blood pressure is intermittently high. We will start her on amlodipine. Qualifiers: Hypertension type: essential hypertension Qualified Code(s): I10 - Essential (primary) hypertension (3) Moderate protein-calorie malnutrition Current Visit: Yes Status: Chronic Assessment and plan: Nutritional supplementation. - Subjective Interval history: Patient is frustrated about the thickening of her coffee and liquids. She wants regular coffee. Other than that, she reports that she is able to drink thickened liquids without choking. Denies any cough, shortness of breath or wheezing. Denies any palpitations. Continues to report some slurring of the speech. - Constitutional Vitals: Temp Pulse Resp BP Pulse Ox 98.2 F 95 18 149/72 98 10/06/16 07:10 10/06/16 07:10 10/06/16 07:10 10/06/16 07:10 10/06/16 10:30 General appearance: Present: A&O X 3, answers questions appropriately Exam: Gen.: Lying in bed. No acute distress. Chest: Clear to auscultation bilaterally. No adventitious sounds present. CVS: First and second heart sounds present. No murmurs, rubs or gallops. Tachycardia present. Abdomen: Soft, nontender, nondistended. Bowel sounds present. No hepatosplenomegaly. Internal Medicine: Result - Labs CBC & Chem 7: 10/02/16 00:24 10/02/16 00:24 - ABG Interpretation ABG results: PT/INR, D-dimer PT 11.6 Seconds (9.4-12.1) 10/01/16 13:08 Consult Discharge Plan - Plan Referrals: Madeline Godoy MD [Primary Care Provider] -
[2016-10-06] MEDS: Ondansetron 4 MG/2 ML VIAL IVP PRN (14:23)
[2016-10-06] MEDS: amLODIPine 5 MG TABLET PO SCH (16:06)
[2016-10-07] MEDS: *HR* Heparin 5,000 UNIT/ML VIAL SQ SCH (05:49)
--- NOTE | 2016-10-07 06:16 | Electrocardiograph Report ---
[place] [id number] Test Date: 2016-10-05 Pat Name: Teresa Mendoza Department: 111 Room: 2N4 Gender: F [employer] In[employer]ter: : 1930 Requested By: Jayson De La O Order Number: [id number] Reading MD: Agus Montero MD Measurements Intervals [place] Rate: 88 P: 52 ID: [id number] QRS: 29 QRSD: 81 T: 54 QT: 348 QTc: 394 Interpretive Statements SINUS RHYTHM Electronically Signed On 10-07-2016 6:14:22 EDT by Agus Montero MD
[2016-10-07 10:02] LABS: BUN/Creatinine Ratio 14 (6-26); Blood Urea Nitrogen 11 mg/dL (7-20); Calcium 9.2 mg/dL (8.6-10.8); Carbon Dioxide 28 mEq/L (19-29); Chloride 111 mEq/L (98-109); Glucose 95 mg/dL (70-99); Osmolality,Calculated 295 (280-300); Phosphorous 2.8 mg/dL (2.3-4.7); Potassium 3.8 mEq/L (3.5-4.5); Sodium 143 mEq/L (136-145); eGFR For African Americans > 60 (> 60); eGFR For Non-African Americans > 60 (> 60)
[2016-10-07] MEDS: amLODIPine 5 MG TABLET PO SCH (10:19)
[2016-10-07] MEDS: Aspirin Enteric Coated 325 MG Tablet PO SCH (10:19)
[2016-10-07 12:24] LABS: Basophils # 0.1 K/mcL (0.0-0.2); Basophils % 0.6 %; Eosinophils # 0.5 K/mcL (0.0-0.6); Hematocrit 38.2 % (35.3-44.9); Immature Granulocytes % 0.4 % (0-4); Lymphocytes # 2.2 K/mcL (0.6-4.6); Lymphocytes % 23.9 %; Mean Corpuscular HGB Conc 31.4 g/dL (31.6-35.5); Mean Corpuscular Hemoglobin 30.6 pg (28.0-33.3); Mean Corpuscular Volume 97.4 fL (83.0-100.0); Mean Platelet Volume 10.9 fL (9.4-12.4); Monocytes # 0.9 K/mcL (0.0-1.3); Monocytes % 10.1 %; Neutrophils # 5.5 K/mcL (1.6-8.9); Platelet Count 224 K/mcL (140-400); Red Blood Count 3.92 M/mcL (3.82-4.97); Red Cell Distribution Width 14.3 % (11.5-14.5)
--- NOTE | 2016-10-07 12:54 | Discharge Summary ---
Date of Encounter: 10/07/16 Time of Encounter: 12:52 - Discharge Diagnosis (1) CVA (cerebral vascular accident) Priority: Primary Status: Acute Qualifiers: CVA mechanism: embolism Precerebral and cerebral artery: middle cerebral artery Laterality of affected vessel: right Qualified Code(s): I63.411 - Cerebral infarction due to embolism of right middle cerebral artery (2) Hypertension Priority: Secondary Status: Chronic Qualifiers: Hypertension type: essential hypertension Qualified Code(s): I10 - Essential (primary) hypertension (3) Moderate protein-calorie malnutrition Priority: Secondary Status: Chronic - Discharge Medications Prescriptions: Sennosides/Docusate Sodium [Senna Plus] 2 each PO BID PRN #30 tablet PRN Reason: Constipation Home Medications: Cholecalciferol (D-3) [Vitamin D] 1,000 unit PO DAILY 10/01/16 [History] Ferrous Sulfate [Iron] 325 mg PO BID 10/01/16 [History] Multivitamin [Multi-Day Vitamins] 1 tab PO DAILY 10/01/16 [History] Solifenacin Succinate [Vesicare] 10 mg PO DAILY 10/01/16 [History] Aspirin Enteric Coated [Aspirin EC] 325 mg PO DAILY 10/07/16 [Rx] Atorvastatin [Lipitor] 40 mg PO HS tab 10/07/16 [Rx] Sennosides/Docusate Sodium [Senna Plus] 2 each PO BID PRN #30 tablet 10/07/16 [ Rx] amLODIPine [Norvasc] 5 mg PO DAILY tab 10/07/16 [Rx] Allergies/Adverse Reactions: Allergies No Known Allergies Allergy (Verified 11/25/14 09:33) Procedures/tests Complete & Pending: Procedures Performed prior 72 hours Category Date Time Status EKG [ECG 12 lead ECG] [ECG] Routine Y 10/05/16 10:27 Completed Date of admission: 10/02/16 09:02 Primary care physician: Madeline Godoy MD Consults: 10/02/16 17:26 Consult to Interpret Exam [CONS] Routine Consulting Provider: Latrell Del Angel Consult to Interpret Exam: Interpret EEG Discharging clinician: Anusha Miranda Anticipated date of discharge: 10/07/16 - Patient Status Disposition: Transfer SNF Condition: Fair Functional capacity at discharge: uses cane/walker Overall status at discharge: patient is back to baseline - Discharge Instructions Instructions: Chronic Kidney Disease (DC), Chronic Kidney Disease (GEN), Ischemic Stroke (DC), Ischemic Stroke (GEN), Chronic Hypertension (DC), Fall Prevention (DC) Follow Up With: Madeline Godoy MD [Primary Care Provider] - Additional Instructions: Please follow up with neurology within 2-3 weeks after your discharge from the hospital. Please follow up with your primary care physician within one week after your discharge from the hospital. Aspirin, Lipitor, Amlodipine have been added to your home medications, please take this medications as prescribed. Senna plus as needed for constipation has been added to your home medications Resume all your other home medications as prescribed by your primary care physician. - Diet and Activity Activity: as per physical therapy Diet: low salt diet Hospital course: Ms. Mendoza is a 85 year old female with PMH of chronic anemia UTI, CKD stage II, HTN, HLD, hx of breast ca who was admitted for management of CVA. She was followed by neurology. She was started on aspirin, statin, and amlodipine. She was followed by physical therapy and rehab was recommended. At this time, she is hemodynamically stable for discharged to rehab facility. patient demonstrates understanding of her diagnosis and agrees with the discharge care and plan. - Time Spent with Patient Total time spent providing and/or coordinating discharge services: Greater than 30 minutes - Constitutional Vitals: Temp Pulse Resp BP Pulse Ox 98.3 F 83 15 152/74 94 10/07/16 07:27 10/07/16 07:27 10/07/16 07:27 10/07/16 07:27 10/07/16 07:27 General appearance: Present: A&O X 3, no acute distress, underweight, answers questions appropriately - Head Head exam: Present: atraumatic, normocephalic - Eye Eye exam: Present: normal appearance, conjuntiva pink, sclera anicteric - Respiratory Respiratory exam: Present: CTAB. Absent: accessory muscle use, rales, rhonchi, wheezes - Cardiovascular Cardiovascular exam: Present: RRR, +S1, +S2. Absent: diastolic murmur, gallop, rubs, systolic murmur - GI/Abdominal GI/Abdominal exam: Present: normal bowel sounds, soft, no peritoneal signs. Absent: distended, tenderness - Extremities Exam Extremities exam: Present: warm, radial pulses palpable and symetrical. Absent : calf tenderness, pedal edema - Neurological Exam Neurological exam: Present: alert, oriented X3 - Psychiatric Psychiatric exam: Present: normal affect, normal mood
--- NOTE | 2016-10-07 14:23 | Physician Discharge Referral ---
ExtendedCare Referral Info Transfer To: [facility] Provider in Charge after Transfer: PCP - Diagnosis (1) CVA (cerebral vascular accident) Priority: Primary Status: Acute (2) Hypertension Priority: Secondary Status: Chronic (3) Moderate protein-calorie malnutrition Priority: Secondary Status: Chronic - Transfer Medications Prescriptions: Sennosides/Docusate Sodium [Senna Plus] 2 each PO BID PRN #30 tablet PRN Reason: Constipation Home Medications: Cholecalciferol (D-3) [Vitamin D] 1,000 unit PO DAILY 10/01/16 [History] Ferrous Sulfate [Iron] 325 mg PO BID 10/01/16 [History] Multivitamin [Multi-Day Vitamins] 1 tab PO DAILY 10/01/16 [History] Solifenacin Succinate [Vesicare] 10 mg PO DAILY 10/01/16 [History] Aspirin Enteric Coated [Aspirin EC] 325 mg PO DAILY 10/07/16 [Rx] Atorvastatin [Lipitor] 40 mg PO HS tab 10/07/16 [Rx] Sennosides/Docusate Sodium [Senna Plus] 2 each PO BID PRN #30 tablet 10/07/16 [ Rx] amLODIPine [Norvasc] 5 mg PO DAILY tab 10/07/16 [Rx] Allergies/Adverse Reactions: Allergies No Known Allergies Allergy (Verified 11/25/14 09:33) - Respiratory Orders Smoking Cessation: Smoking cessation has been advised. For more information, call the [place] Tobacco Quit Line at 0-449-ANHV-NOW. - Rehabiliation Orders Other: Please follow up with neurology within 2-3 weeks after your discharge from the hospital. Please follow up with your primary care physician within one week after your discharge from the hospital. Aspirin, Lipitor, Amlodipine have been added to your home medications, please take this medications as prescribed. Senna plus as needed for constipation has been added to your home medications Resume all your other home medications as prescribed by your primary care physician. CERTIFICATION: I certify that the transfer of the above named patient to an Extended Care Facility is necessary for the continuing treatment of the diagnosis listed. The above information is true and accurate reflection of patient's current condition. Confidential - Redisclosure prohibited without a patient's written consent.
[2016-10-07 16:12] VITALS: BP 145/71
== END 2016-10-07 17:06 | DRG 64 ==
LOC: 2NENU 12:40 → EMEROO 12:40 → 2NENU 17:14
PROVIDERS: ADMIT Internal Medicine; ATTEND Internal Medicine Sleep Medicine